=== PATIENT | female | born 1985 | race Caucasian/White ===

== ENCOUNTER 2018-08-05 08:45 | Day surgery (SDC) | payer BC, MEDICAID ==
[~2018-08-05] VITALS: Ht 157.5 cm; Wt 73.2 kg
[2018-08-05] MEDS ORDERED: HC30CR25 TOP (09:28)
[2018-08-05] MEDS ORDERED: DUCOSATE SODIUM (09:28)
[2018-08-05 09:31] VITALS: Ht 157.5 cm; Wt 73.2 kg
[2018-08-05 10:02] VITALS: BP 115/64; PULSE 75; RESP 13
[2018-08-05] MEDS ORDERED: MIDAZOLAM 1 MG/ML 2 ML INJ ONE ×2 (10:37)
[2018-08-05] MEDS ORDERED: FENTAnyl 50 MCG/ML VIAL ONE (10:37)
[2018-08-05 10:50] VITALS: BP 99/55; RESP 14
== END 2018-08-05 10:57 | disposition home or self-care (01) ==
LOC: GIL 08:45
PROVIDERS: ATTEND Internal Medicine Gastroenterology
DX: K92.1 Melena (principal); K52.9 Noninfective gastroenteritis and colitis, unspecified; K64.4 Residual hemorrhoidal skin tags
CPT/HCPCS: 45380; 84703; 88305; J2250; J3010; Z7610